=== PATIENT | male | born 1975 | race Caucasian/White ===

== ENCOUNTER 2024-06-13 20:01 | Emergency (ER) | payer SELFPAY ==
[2024-06-13 20:02] VITALS: BP 190/114
[2024-06-13] MEDS: MOTRIN 600 MG PO (21:43)
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
== END 2024-06-13 22:14 | disposition home or self-care (01) ==
LOC: EMR 20:01
PROVIDERS: EMERGENCY PHYSICIAN Emergency Medicine; FAMILY PHYSICIAN Family Medicine
DX: S62.395A Other fracture of fourth metacarpal bone, left hand, initial encounter for closed fracture (principal); S29.9XXA Unspecified injury of thorax, initial encounter; V49.40XA Driver injured in collision with unspecified motor vehicles in traffic accident, initial encounter
CPT/HCPCS: 29125; 99284; 70450; 71250; 72125; 73110; 73130; 93005